=== PATIENT | female | born 1955 | race Caucasian/White ===

== ENCOUNTER 2016-12-27 07:52 | Emergency (ER) | payer BC, OTHER ==
[~2016-12-27] VITALS: Ht 170.2 cm; Wt 87.4 kg
[2016-12-27 07:55] VITALS: Ht 170.2 cm; Wt 87.4 kg
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
--- OUTSIDE RECORDS SUMMARY | 2016-12-27 07:56 | XMS REPORT | Referral Summary ---
Author Author [facility] Ale[facility]andra Newton, [facility] Care Organization [facility] Address Unknown Phone Unavailable Care Team Providers Care Customer Engagement Analyst Name Role Phone No PCP, States Primary Care Physician [phone] Encounter VC Date(s): 06/05/16 - 06/05/16 [facility] Alejandra Newton [address] [place] [id number] Discharge Diagnosis: Fall on steps Discharge Diagnosis: Acute bronchitis with COPD Discharge Disposition: 01-Home or Self Care Attending Physician: Tommy Montoya PA-C Admitting Physician: Tommy Montoya PA-C Vital Signs Most recent to 1 oldest [Reference Range]: Temperature Tympanic 37.3 degC [36.6-38.1 degC] (06/05/16 1:49 PM) Peripheral Pulse 98 bpm Rate [60-100 bpm] (06/05/16 1:49 PM) Blood Pressure 144/78 mmHg [90-140/60-90 mmHg] *HI* (06/05/16 1:49 PM) SpO2 96 % (06/05/16 1:49 PM) Problem List Condition Effective Dates Status Health Status Informant COPD (chronic Active obstructive pulmonary disease)(Confirmed) Obesity(Confirmed) Active patient Tobacco Active patient user(Confirmed) Allergies, Adverse Reactions, Alerts No Known Medication Allergies Medications albuterol CFC free 90 mcg/inh inhalation aerosol 2 puffs, Inhalation, q4hr, as needed for wheezing, # 18 g, 0 Refill(s), Pharmacy : [facility] #[id number] Start Date: 06/05/16 Status: Ordered Augmentin 875 mg-125 mg oral tablet 1 tabs, Oral, q12hr, X 7 days, # 14 tabs, 0 Refill(s), Pharmacy: [facility] #[id number] Start Date: 06/05/16 Stop Date: 06/12/16 Status: Ordered Results No data available for this section Immunizations No data available for this section Procedures Procedure Date Related Diagnosis Body Site Closed lower jaw bone fx H/O: hysterectomy Laparoscopic tubal occlusion Social History Social History Type Response Smoking Status Current every day smoker; Type: Cigarettes; Tobacco use per day: 1 Pack Assessment and Plan Extracted from: Title: Ambulatory Patient Education Author: Judith Caban RN Date: Family Medicine Concussion, Adult A concussion, or closed-head injury, is a brain injury caused by a direct blow to the head or by a quick and sudden movement (jolt) of the head or neck. Concussions are usually not life-threatening. Even so, the effects of a concussion can be serious. If you have had a concussion before, you are more likely to experience concussion-like symptoms after a direct blow to the head. CAUSES Direct blow to the head, such as from running into another player during a soccer game, being hit in a fight, or hitting your head on a hard surface. A jolt of the head or neck that causes the brain to move back and forth inside the skull, such as in a car crash. SIGNS AND SYMPTOMS The signs of a concussion can be hard to notice. Early on, they may be missed by you, family members, and health care providers. You may look fine but act or feel differently. Symptoms are usually temporary, but they may last for days, weeks, or even longer. Some symptoms may appear right away while others may not show up for hours or days. Every head injury is different. Symptoms include: Mild to moderate headaches that will not go away. A feeling of pressure inside your head. Having more trouble than usual: Learning or remembering things you have heard. Answering questions. Paying attention or concentrating. Organizing daily tasks. Making decisions and solving problems. Slowness in thinking, acting or reacting, speaking, or reading. Getting lost or being easily confused. Feeling tired all the time or lacking energy (fatigued). Feeling drowsy. Sleep disturbances. Sleeping more than usual. Sleeping less than usual. Trouble falling asleep. Trouble sleeping (insomnia). Loss of balance or feeling lightheaded or dizzy. Nausea or vomiting. Numbness or tingling. Increased sensitivity to: Sounds. Lights. Distractions. Vision problems or eyes that tire easily. Diminished sense of taste or smell. Ringing in the ears. Mood changes such as feeling sad or anxious. Becoming easily irritated or angry for little or no reason. Lack of motivation. Seeing or hearing things other people do not see or hear (hallucinations) . DIAGNOSIS Your health care provider can usually diagnose a concussion based on a description of your injury and symptoms. He or she will ask whether you passed out (lost consciousness) and whether you are having trouble remembering events that happened right before and during your injury. Your evaluation might include: A brain scan to look for signs of injury to the brain. Even if the test shows no injury, you may still have a concussion. Blood tests to be sure other problems are not present. TREATMENT Concussions are usually treated in an emergency department, in urgent care, or at a clinic. You may need to stay in the hospital overnight for further treatment. Tell your health care provider if you are taking any medicines, including prescription medicines, andj-eyb-niezyec medicines, and natural remedies. Some medicines, such as blood thinners (anticoagulants) and aspirin, may increase the chance of complications. Also tell your health care provider whether you have had alcohol or are taking illegal drugs. This information may affect treatment. Your health care provider will send you home with important instructions to follow. How fast you will recover from a concussion depends on many factors. These factors include how severe your concussion is, what part of your brain was injured, your age, and how healthy you were before the concussion. Most people with mild injuries recover fully. Recovery can take time. In general, recovery is slower in older persons. Also, persons who have had a concussion in the past or have other medical problems may find that it takes longer to recover from their current injury. HOME CARE INSTRUCTIONS General Instructions Carefully follow the directions your health care provider gave you. Only take bdzp-gxu-gkumevb or prescription medicines for pain, discomfort , or fever as directed by your health care provider. Take only those medicines that your health care provider has approved. Do not drink alcohol until your health care provider says you are well enough to do so. Alcohol and certain other drugs may slow your recovery and can put you at risk of further injury. If it is harder than usual to remember things, write them down. If you are easily distracted, try to do one thing at a time. For example , do not try to watch TV while fixing dinner. Talk with family members or close friends when making important decisions. Keep all follow-up appointments. Repeated evaluation of your symptoms is recommended for your recovery. Watch your symptoms and tell others to do the same. Complications sometimes occur after a concussion. Older adults with a brain injury may have a higher risk of serious complications, such as a blood clot on the brain. Tell your teachers, school nurse, school counselor, public speaking coach, new product trainer, or perinatal social worker about your injury, symptoms, and restrictions. Tell them about what you can or cannot do. They should watch for: Increased problems with attention or concentration. Increased difficulty remembering or learning new information. Increased time needed to complete tasks or assignments. Increased irritability or decreased ability to cope with stress. Increased symptoms. Rest. Rest helps the brain to heal. Make sure you: Get plenty of sleep at night. Avoid staying up late at night. Keep the same bedtime hours on weekends and weekdays. Rest during the day. Take daytime naps or rest breaks when you feel tired. Limit activities that require a lot of thought or concentration. These include: Doing homework or job-related work. Watching TV. Working on the computer. Avoid any situation where there is potential for another head injury ( football, hockey, soccer, basketball, martial arts, downhill snow sports and horseback riding). Your condition will get worse every time you experience a concussion. You should avoid these activities until you are evaluated by the appropriate follow-up health care providers. Returning To Your Regular Activities You will need to return to your normal activities slowly, not all at once. You must give your body and brain enough time for recovery. Do not return to sports or other athletic activities until your health care provider tells you it is safe to do so. Ask your health care provider when you can drive, ride a bicycle, or operate heavy machinery. Your ability to react may be slower after a brain injury. Never do these activities if you are dizzy. Ask your health care provider about when you can return to work or school. Preventing Another Concussion It is very important to avoid another brain injury, especially before you have recovered. In rare cases, another injury can lead to permanent brain damage, brain swelling, or . The risk of this is greatest during the first 710 days after a head injury. Avoid injuries by: Wearing a seat belt when riding in a car. Drinking alcohol only in moderation. Wearing a helmet when biking, skiing, skateboarding, skating, or doing similar activities. Avoiding activities that could lead to a second concussion, such as contact or recreational sports, until your health care provider says it is okay. Taking safety measures in your home. Remove clutter and tripping hazards from floors and stairways. Use grab bars in bathrooms and handrails by stairs. Place non-slip mats on floors and in bathtubs. Improve lighting in dim areas. SEEK MEDICAL CARE IF: You have increased problems paying attention or concentrating. You have increased difficulty remembering or learning new information. You need more time to complete tasks or assignments than before. You have increased irritability or decreased ability to cope with stress. You have more symptoms than before. Seek medical care if you have any of the following symptoms for more than 2 weeks after your injury: Lasting (chronic) headaches. Dizziness or balance problems. Nausea. Vision problems. Increased sensitivity to noise or light. Depression or mood swings. Anxiety or irritability. Memory problems. Difficulty concentrating or paying attention. Sleep problems. Feeling tired all the time. SEEK IMMEDIATE MEDICAL CARE IF: You have severe or worsening headaches. These may be a sign of a blood clot in the brain. You have weakness (even if only in one hand, leg, or part of the face). You have numbness. You have decreased coordination. You vomit repeatedly. You have increased sleepiness. One pupil is larger than the other. You have convulsions. You have slurred speech. You have increased confusion. This may be a sign of a blood clot in the brain. You have increased restlessness, agitation, or irritability. You are unable to recognize people or places. You have neck pain. It is difficult to wake you up. You have unusual behavior changes. You lose consciousness. MAKE SURE YOU: Understand these instructions. Will watch your condition. Will get help right away if you are not doing well or get worse. This information is not intended to replace advice given to you by your health care provider. Make sure you discuss any questions you have with your health care provider. Document Released: 12/12/2004 Document Revised: 10/13/2015 Document Reviewed: [facility] Patient Information 2016 [employer] [facility]. No follow up information was provided. Extracted from: Title: upper back pain Author: Tommy Montoya PA-C Date: 06/05/16 Assessment/Plan Acute bronchitis with COPD I recommended patient to use her albuterol inhalerevery 4 hours as needed for wheezingand cough;if she requires albuterolevery 2 hours, worsening shortness of breath and wheezing- follow-up for reassessment. Patient believes she has enough albuterolinhaler; I refillthe inhalerand prescribed Augmentin. Fall on steps Patient has erythema across the clavicle, at this time I recommended using Tylenol for pain control; holdthe Aleve for the next several days to monitor the symptoms of her headache; she was given a handout on concussion. If she develops any of the immediate warning sign, she is to report to the ER for additional assessment. If she develops additional musculoskeletal pains, follow-up for reassessment. Orders: albuterol, 2 puffs, Inhalation, q4hr, as needed for wheezing, # 18 g, 0 Refill(s), Pharmacy: [facility] #[id number] amoxicillin-clavulanate, 1 tabs, Oral, q12hr, X 7 days, # 14 tabs, 0 Refill(s) , Pharmacy: [facility] #[id number]
[2016-12-27] MEDS ORDERED: NO DAILY MEDS (08:08)
[2016-12-27] MEDS ORDERED: NORMAL SALINE 500 ML IV ONE (08:15)
[2016-12-27 08:30] LABS: BASOPHILS # (AUTO) 0.1 T/MM3 (0-0.2); BASOPHILS % (AUTO) 0.7 % (0-2); EOSINOPHILS # (AUTO) 0.2 T/MM3 (0-0.5); EOSINOPHILS % (AUTO) 2.1 % (0-4); HCT - HEMATOCRIT 46.1 % (36-46); HGB - HEMOGLOBIN 14.9 GM/DL (12-16); IMMATURE GRANULOCYTE # (AUTO) 0.01 T/MM3 (0.00-0.03); IMMATURE GRANULOCYTE % (AUTO) 0.1 % (0.0-0.5); LYMPHOCYTES # (AUTO) 2.6 T/MM3 (1-4.8); LYMPHOCYTES % (AUTO) 36.2 % (23-45); MEAN CORPUSCULAR HGB 29.6 UUG (26-34); MEAN CORPUSCULAR HGB CONC(MCHC 32.3 GM/DL (31-37); MEAN CORPUSCULAR VOLUME 91.5 UM3 (80-100); MEAN PLATELET VOLUME 11.4 UM3 (9.4-12.4); MONOCYTES # (AUTO) 0.4 T/MM3 (0-0.8); MONOCYTES % (AUTO) 5.3 % (0-9.0); NEUTROPHILS % (AUTO) 55.6 % (33-66); RED BLOOD COUNT 5.04 M/MM3 (4.00-5.20); WBC - WHITE BLOOD COUNT 7.2 T/MM3 (4.5-11.0)
[2016-12-27 08:39] LABS: ALBUMIN 4.3 G/DL (3.5-5.0); ALBUMIN/GLOBULIN RATIO 1.3 RATIO (1.1-2.2); ALKALINE PHOSPHATASE 116 U/L (38-126); ALT (SGPT) 25 U/L (9-52); ANION GAP 12 MEQ/L (5-15); AST (SGOT) 16 U/L (14-36); BUN/CREATININE RATIO 27 RATIO (6-26); CALCIUM 9.1 MG/DL (8.4-10.2); CHLORIDE 102 MEQ/L (98-107); CO2 - CARBON DIOXIDE 32 MEQ/L (22-30); CREATININE 0.7 MG/DL (0.7-1.2); GLOMERULAR FILTRATION RATE 85; GLUCOSE 133 MG/DL (65-110); LIPASE 101 U/L (23-300); POTASSIUM 3.8 MEQ/L (3.6-5); SODIUM 146 MEQ/L (134-144); TOTAL PROTEIN 7.5 G/DL (6.3-8.2)
--- NOTE | 2016-12-27 08:58 | DI ---
Indication: ITS.REASON: L abdominal pain for two days PROCEDURE: CT ABD/PELVIS W/O CONTRAST: Encounter: Initial Comparison: None Technique: Axial CT images were performed through the abdomen and pelvis without intravenous contrast. Coronal and sagittal two-dimensional reformats. Automated Exposure Control and Iterative Reconstruction dose reducing techniques were utilized. Findings: Calcified granulomas in the right middle lobe along with some pleural thickening and scarring. Tiny 2 to 3 mm nodules in the left lower lobe could also represent granulomas. The liver shows scattered subcentimeter low-attenuation lesions in the right lobe which are too small to characterize. No contour deforming mass or gross bile duct dilatation. The gallbladder is very contracted. The spleen, pancreas and adrenal glands are within normal limits. Right kidney shows several nonobstructing stones ranging from 2 to 3 mm in size in the upper pole and interpolar area. There are total of four stones seen. No right ureteral stone. Left kidney shows a calcification in the hilum measuring 5 mm in size that could be vascular or in the collecting system. No additional left-sided stones. No left ureteral stone identified. Bladder appears normal. Uterus is absent. Sigmoid diverticulosis without evidence of acute inflammation to suggest diverticulitis. No bowel obstruction. The appendix is normal. Bone windows show mild degenerative changes in the spine. Impression: Bilateral nephrolithiasis without evidence of obstructing stone or clear etiology for the patient's left abdominal pain. .
[2016-12-27] MEDS ORDERED: MORPHINE SULFATE 4 MG SYRINGE IV ONE (09:15)
[2016-12-27] MEDS ORDERED: ONDANSETRON 4mg/2ml INJECTION IV ONE (09:15)
[2016-12-27 09:28] LABS: BLOOD, URINE 1+ (NEGATIVE); COLOR,URINE YELLOW (YELLOW); LEUKOCYTE ESTERASE ,URINE NEGATIVE (NEGATIVE); NITRITE,URINE NEGATIVE (NEGATIVE); UROBILINOGEN,URINE 0.2 EU/DL (NORMAL)
--- NOTE | 2016-12-27 09:43 | NUR ---
COMFORT PT REPORTS PAIN 4/10 AT THIS TIME
[2016-12-27 09:45] LABS: BACTERIA,URINE NONE SEEN (NEGATIVE); RBC,URINE 0-1 /HPF (0-3); SQUAMOUS EPITHELIAL CELL,UR 0-5; WBC,URINE NONE SEEN /HPF (0-5)
[2016-12-27] MEDS ORDERED: HYDR-4246 PO (09:49)
[2016-12-27] MEDS ORDERED: ONDA4TAB7 PO (09:49)
--- NOTE | 2016-12-27 09:49 | ERPDOC ---
Departure Disposition Decision Date: Dec 27, 2016 Disposition Decision Time: 09:47 Disposition: 01 DISCHARGED HOME, SELF-CARE Impression Impression Impression: Primary Impression: Abdominal pain Abdominal location: unspecified location Qualified Codes: R10.9 - Unspecified abdominal pain Severity: Mild Condition: Improved Seen By: Physician only Referrals: [facility] 2 Days Patient Instructions: Abdominal Pain (ED) Problems/Meds/Labs Reviewed?: Yes Medications reviewed and manag: Yes Follow up care ordered?: Yes Mental Status: Alert, Oriented Scripts Ondansetron (Zofran Odt) 4 Mg Tab.rapdis 4 MG PO Q4HR Y for NAUSEA &/OR VOMITING for 3 Days, #18 TAB 0 Refills Prov: KEESHA CASTRO DO 12/27/16 Hydrocodone/Acetaminophen ([place] 5-325 Tablet) 5-325 Tablet 1 TAB PO Q4HR Y for PAIN for 3 Days, #18 TAB 0 Refills Prov: KEESHA CASTRO DO 12/27/16 HPI - Abdominal Pain General Chief Complaint: Abdominal Pain Stated Complaint: L SIDE ABD PAIN Time Seen by Provider: 07:57 Source: patient History/Exam Limitations: no limitations HPI - Abdominal Pain Initial Comments 61-year-old female presents to the emergency department with a chief complaint of left sided lateral abdominal discomfort. Patient noted onset of symptoms 3 days ago. Symptoms have been persistent in nature since onset. Patient denies any trauma, travel, poorly prepared food, or recent antibiotic use. Patient denies any other complaints or associated symptoms. Pain is sharp. There is no radiation of pain. Pain is moderate. She does note that the pain increases with movement of the thorax. Pain improves with rest. She was at home when the symptoms began. Symptoms have been persistent in nature since onset. Allergies: Coded Allergies: No Known Allergies (Unverified , 12/27/16) Past History Past Medical History Pt denies signifigant PMH Surgical History Reproductive/: hysterectomy Family History Family History: Negative Social History Smoking Status: Never smoker Substance Use Type: does not use Alcohol Intake: none Review of Systems Constitutional Constitutional: DENIES: chills, fever Eyes General: DENIES: erythema, exudate Lids/Accessories: DENIES: erythema, swelling Vision: DENIES: acuity, blurring ENMT Ears: DENIES: drainage, erythema, pain Hearing: DENIES: hearing loss Balance: DENIES: ataxia, falling to one side Sinuses: DENIES: congestion, pain Nose: DENIES: nosebleeds, pain Mouth/Throat: DENIES: painful swallowing, sore throat Teeth: DENIES: pain Jaw: DENIES: pain Cardiovascular Cardiac: DENIES: chest pain, dyspnea on exertion Rhythm/Rate: DENIES: irregular beat, palpitations Vascular: DENIES: pedal edema, unilateral swelling Pulmonary Respiratory: DENIES: cough, dyspnea, pleuritic chest pain, sputum GI Upper Abdomen: DENIES: nausea, pain, vomiting Lower Abdomen: pain, DENIES: diarrhea Comments Pain in lateral abdomen General: DENIES: dysuria, pain Musculoskeletal General: DENIES: pain, tenderness Integumentary Skin: DENIES: itching, rash Neurological General: DENIES: headache, numbness, weakness Psychiatric Psychiatric: DENIES: emotional instability, suicidal ideation/attempt Endocrine Endocrine: DENIES: polydipsia, polyphagia Hematologic/Lymphatic Hematologic/Lymphatic: DENIES: frequent nosebleeds, lymphadenopathy Allergic/Immunological Allergic/Immunoligical: DENIES: allergic reactions, hives Physical Exam General General Nourishment: well nourished, well developed, appears stated age, no acute distress General Body Habitus: well groomed Vitals and Pain First Documented Vital Signs Date Time Temp Pulse Resp B/P Pulse Ox O2 Delivery O2 Flow Rate FiO2 12/27/16 07:55 97.4 85 18 134/60 97 Room Air 12/27/16 09:30 2.00 Weight: Kilograms: 87.400 Height (feet): 5 Height (inches): 7.00 Triage Pain Scale: RN VS reviewed by Provider: Yes Normal Exams: Head: Normocephalic w/o trauma Eyes: Pupils are PERRLA w/ EOMI, No scleral icterus, irritation, or foreign bodies noted ENMT: No facial trauma, nasal exudates, pharyngeal erythema, or exudates are noted Dental: No fractured, loose, or missing teeth noted Neck: Full range of motion, without adenopathy, JVD, bruits or thyromegaly Chest/Resp: Clear all sparks, with good airflow, and symmetry bilaterally CV: Regular rate and rhythm, without murmur or gallop, Pulses 2+ all extremities, capillary refill, <2 seconds all ext., no pedal edema noted Abdomen: Bowel sounds positive, non-distended, no hepatosplenomegaly, masses or bruits noted Lymphatic: No lymphadenopathy, or lymphedema noted Musculoskeletal: No tenderness, or deformity noted, good range of motion, all extremities Integumentary: No rashes, hives, or bruising noted, hair and nails, without abnormality Neurologic: Patient is alert, and oriented, cranial nerves, motor/sensory/ cerebellar, exams w/o gross deficits, to observation Psychiatric: Patient exhibits, appropriate attention, emotion and affect Abdomen (brief) Comments Abdomen is soft. No peritoneal signs. No CVA tenderness. Mild tenderness to palpation in the lateral left mid abdomen. BSA x 4. No rebound or guarding. Differential Diagnoses Considering: Constipation, Diverticulitis, IBS, Ileus, UTI Progress Results/Orders Orders Procedure Category Date Status Time Cbc W/Auto LAB 12/27/16 Complete Diff-Reflex Manual Cmp - Comprehensive LAB 12/27/16 Complete Metabolic Lipase LAB 12/27/16 Complete EKG EKG 12/27/16 Taken Iv Lock (Ed Only) EDM 12/27/16 Transmitted 08:12 Ct Abd/Pelvis W/O CT 12/27/16 Resulted Contrast 08:12 Normal Saline (Ns) PHA 12/27/16 Complete 08:15 Troponin I W LAB 12/27/16 Complete Hemolysis Index Morphine Sulfate PHA 12/27/16 Complete (Morphine) 09:15 Ondansetron Inj PHA 12/27/16 Complete (Zofran) 09:15 UA, LAB 12/27/16 Complete Dip&Micro(Complete) & 08:15 Lab Results Laboratory Tests Test 12/27/16 08:15 12/27/16 08:24 Urine Collection Type Cleancatch-midstream Urine Color Yellow Urine Turbidity Clear Urine pH 6.0 Urine Specific [place] 1.010 Urine Protein Negative Urine Glucose (UA) Negative Urine Ketones Negative Urine Blood 1+ Urine Nitrite Negative Urine Bilirubin Negative Urine Urobilinogen 0.2EU/DL Urine Leukocyte Esterase Negative Urine RBC 0-1/HPF Urine WBC None seen/HPF Urine Squamous Epithelial Cells 0-5 Urine Bacteria None seen Urine Culture Indicated Cult not indicated White Blood Count 7.2T/MM3 Red Blood Count 5.04M/MM3 Hemoglobin 14.9GM/DL Hematocrit 46.1% Mean Corpuscular Volume 91.5UM3 Mean Corpuscular Hemoglobin 29.6UUG Mean Corpuscular Hemoglobin Concent 32.3GM/DL RDW Standard Deviation 41.9FL Platelet Count 204T/MM3 Mean Platelet Volume 11.4UM3 Immature Granulocyte % (Auto) 0.1% Neutrophils (%) (Auto) 55.6% Lymphocytes (%) (Auto) 36.2% Monocytes (%) (Auto) 5.3% Eosinophils (%) (Auto) 2.1% Basophils (%) (Auto) 0.7% Absolute Immature Granulocyte (auto 0.01T/MM3 Absolute Neutrophils (auto) 4.0T/MM3 Absolute Lymphocytes (auto) 2.6T/MM3 Absolute Monocytes (auto) 0.4T/MM3 Absolute Eosinophils (auto) 0.2T/MM3 Absolute Basophils (auto) 0.1T/MM3 Turbidity < 20 Sodium Level 146MEQ/L Potassium Level 3.8MEQ/L Chloride Level 102MEQ/L Carbon Dioxide Level 32MEQ/L Anion Gap 12MEQ/L Blood Urea Nitrogen 19.0MG/DL Creatinine 0.7MG/DL Glomerular Filtration Rate Calc 85 BUN/Creatinine Ratio 27RATIO Glucose Level 133MG/DL Calculated Osmolality 285MOSM/KG Calcium Level 9.1MG/DL Total Bilirubin 0.50MG/DL Icterus Index < 2 Aspartate Amino Transf (AST/SGOT) 16U/L Alanine Aminotransferase (ALT/SGPT) 25U/L Alkaline Phosphatase 116U/L Troponin I < 0.012ng/ml Total Protein 7.5G/DL Albumin 4.3G/DL Globulin 3.2G/DL Albumin/Globulin Ratio 1.3RATIO Lipase 101U/L Chemistry Specimen Hemolysis < 15 Medications Current ED Medications Sodium Chloride (NS) 500 ml @ 999 mls/hr Q31M ONCE IV Last administered on 09:10; Start 12/27/16 at 08:15; Stop 12/27/16 at 08:45; Status DC Morphine Sulfate (Morphine) 4 mg O ONCE IV Last administered on 12/27/16 09: 22; Start 12/27/16 at 09:15; Stop 12/27/16 at 09:16; Status DC Ondansetron HCl (Zofran) 4 mg O ONCE IV Last administered on 12/27/16 09:20; Start 12/27/16 at 09:15; Stop 12/27/16 at 09:16; Status DC Progress Progress Labs/imaging were discussed in detail with the patient and questions are answered. Patient is given IV hydration. Patient is given parental narcotic and antiemetic medications intravenously which improved her symptoms. Patient is discharged home in improved condition. Patient is to follow up as instructed. Patient is to return to the emergency Department if her condition worsens or changes in any manner. Patient is in agreement with the current plan of management. Prescriptions for [place] and Zofran are provided. EKG EKG : Rate: 60-100 Rhythm: sinus [place]: normal QRS: normal Intervals: normal ST/T: non-specific changes Interpreted by: signing physician CT CT : CT: Abd/Pelvis no contrast Interpretation: Normal, Reviewed Written Report KEESHA CASTRO DO Dec 27, 2016 09:49
--- NOTE | 2016-12-27 10:00 | NUR ---
IV IV DC'D WITH CATH INTACT
[2016-12-27 10:05] VITALS: BP 128/74; PULSE 71; RESP 18; TEMP 97.4; O2SAT 96
--- NOTE | 2016-12-27 10:05 | NUR ---
DISMISSAL DISMISSAL INSTRUCTIONS WITH RX FOR NORCO AND ZOFRAN. NO FURTHER QUESTIONS AT THIS TIME. PT LEFT DEPARTMENT AMBUALTORY
== END 2016-12-27 10:05 | disposition home or self-care (01) ==
LOC: ED 07:52
DX: R10.32 Left lower quadrant pain (principal)
CPT/HCPCS: 36415; 74176; 80053; 81001; 83690; 84484; 85025; 93005; 96361; 96374; 96375; 99284; J2405